=== PATIENT | female | born 1980 | race Hispanic/Latino ===

== ENCOUNTER 2016-10-06 23:06 | Emergency (ER) | payer BC ==
[2016-10-06 23:14] VITALS: BP 133/70; PULSE 66; RESP 16; TEMP 98.1; O2SAT 99
--- NOTE | 2016-10-07 01:41 | ED PDOC ---
HPI: Skin/Bite Injury Time Seen by Provider: 10/07/16 00:44 Chief Complaint (Nursing): Abnormal Skin Integrity Chief Complaint (Provider): laceration History Per: Patient History/Exam Limitations: no limitations Additional Complaint(s): 36yo F in ED for eval of right post. thigh-puncture wound-states that she had a metal puncture her through her jeans now causing pain and bleeidng. tetanus status ?. Pt denies fever, chills nausea or vomiting Past Medical History Reviewed: Historical Data, Nursing Documentation, Vital Signs Vital Signs: Last Vital Signs Temp 98.1 F 10/06/16 23:12 Pulse 66 10/06/16 23:12 Resp 16 10/06/16 23:12 BP 133/70 10/06/16 23:12 Pulse Ox 99 10/06/16 23:12 - Medical History PMH: No Chronic Diseases - Family History Family History: States: No Known Family Hx - Home Medications Home Medications: Ambulatory Orders Medication Instructions Recorded Sulfamethoxazole/Trimethoprim 1 tab PO BID #14 tab 10/07/16 [Bactrim DS 800 mg-160 mg] - Allergies Allergies/Adverse Reactions: Allergies Allergy/AdvReac Type Severity Reaction Status Date / Time Penicillins Allergy VOMITING Verified 10/06/16 23:12 Review of Systems ROS Statement: Except As Marked, All Systems Reviewed And Found Negative Skin: Positive for: Rash Physical Exam - Reviewed Nursing Documentation Reviewed: Yes Vital Signs Reviewed: Yes - Physical Exam Appears: Positive for: Well, Non-toxic, No Acute Distress Skin: Positive for: Normal Color, Warm, DRY Cardiovascular/Chest: Positive for: Regular Rate, Rhythm Respiratory: Positive for: CNT, Normal Breath Sounds Extremity: Positive for: Other (right thigh: post. puncture wound noted and flap noted 1x2cm irregular. mild surronding ertyhema no swelling) Neurologic/Psych: Positive for: Alert, Oriented - ECG O2 Sat by Pulse Oximetry: 99 Medical Decision Making Medical Decision Making: pt became unwell, felt like she was going faint. pt given O2 nasal cannula, zofran odt 4mg. pt feels better. pt VS stable. Pt will get boostrix in ED pt instructed on how to keep wound clean. pt will get rx bactrim Disposition - Clinical Impression Clinical Impression: Laceration, Tetanus - Patient ED Disposition Is Patient to be Admitted: No Counseled Patient/Family Regarding: Studies Performed, Diagnosis, Need For Followup, Rx Given - Disposition Disposition: Routine/Home Disposition Time: 01:46 Condition: STABLE Additional Instructions: keep wound dry keep wound covered return in 12 days for removal of sutures Prescriptions: Sulfamethoxazole/Trimethoprim [Bactrim DS 800 mg-160 mg] 1 tab PO BID #14 tab Instructions: Laceration (ED), Care For Your Stitches (ED) Forms: [employer] (Citizen Of [place]) Procedure: Wound Repair - Time Performed Time Performed: 01:41 - Time Out Time Out: Side verified, Site verified, Patient ID confirmed, Sterile procedures obs. - Procedure Procedure: Wound Repair: puncutre wound post. thigh - Consent Obtained Consent obtained: Emergent consent implied - Performed by Performed by: Mid-level Provider - Indications Indication(s):: Laceration - Location Location:: Right, Leg Shape:: Wedge Dimensions Length cm: 2x3 Depth:: Epidermis - Anesthetic Technique Anesthetic Technique: Local Local/Regional Anesthetic:: Lidocaine 1% - Debris Debris:: None - Irrigated Irrigated with ml of normal saline: 200 - Complexity Complexity:: Simple (one layer) - Wound repair method Sutures:: # (2), Size (4-0), Type (nylon), Technique (simple interrupted) - Patient tolerated procedure Patient Tolerated Procedure:: Well
[2016-10-07] MEDS ORDERED: TDAP Vaccine 0.5 mL Syr IM ONE (01:46)
== END 2016-10-07 01:55 | disposition home or self-care (01) ==
LOC: H.ER 23:06
DX: S81.811A Laceration without foreign body, right lower leg, initial encounter (principal); W26.8XXA Contact with other sharp object(s), not elsewhere classified, initial encounter; Y92.89 Other specified places as the place of occurrence of the external cause; Z88.0 Allergy status to penicillin